=== PATIENT | male | born 1990 | race African-American/Black ===

== ENCOUNTER → 2016-04-13 | Outpatient (REF) ==
[~2016-04-13] MED LIST: NORCO 325 MG-7.1 TAB PO
== END ==
LOC: WSOH 12:13
DX: Z11.1 Encounter for screening for respiratory tuberculosis (principal)

== ENCOUNTER → 2016-04-29 | Outpatient (REF) | LOC: WSOH 08:59 | DX: Z00.00 Encounter for general adult medical examination without abnormal findings (principal) ==